=== PATIENT | female | born 1940 | race Caucasian/White ===

== ENCOUNTER 2021-04-16 08:56 | Day surgery (SDC) | payer MEDICARE ==
--- NOTE | 2021-04-16 08:21 | HP ---
DATE OF SURGERY: 04/16/2021 HISTORY OF PRESENT ILLNESS: The patient is a 80-year-old with last colonoscopy years ago. No bloody stools. She had some abdominal discomfort, some aches and pains after bowel movements and loose stools at times. Family history negative for colon cancer. I feels she is in need of follow up colonoscopy given change in bowel habits. PAST MEDICAL HISTORY: Arthritis. Hypothyroidism. Anxiety. Hypertension. Fibromyalgia. PAST SURGICAL HISTORY: Hernia surgery in the past. MEDICATIONS: Alprazolam, amlodipine, atorvastatin, carvedilol, cholecalciferol, levothyroxine, losartan, methotrexate, paroxetine, raloxifene, ropinirole, tramadol. ALLERGIES: NKDA. FAMILY HISTORY: Positive for lupus, pancreas cancer and breast cancer. SOCIAL HISTORY: No smoking or alcohol abuse. REVIEW OF SYSTEMS: Fourteen systems reviewed. Negative or noncontributory as above and per preadmission questionnaire. PHYSICAL EXAMINATION: GENERAL: No acute distress. HEENT: Sclerae nonicteric. NECK: No JVD. CHEST: Equal excursion, nonlabored breathing. CVS: Regular rate and rhythm. ABDOMEN: Soft. No peritoneal signs. EXTREMITIES: No significant edema. NEURO: Alert, oriented, moving extremities symmetrically. RECTAL: Deferred timed to endoscopy exam. PSYCH: Appropriate mood and affect. IMPRESSION: Change in bowel habits, some abdominal aches and pains after bowel movement. The patient is in need of follow up colonoscopy. She was shown the risk sheet and explained the procedure in detail including but not limited to bleeding or infection, risk of bowel injury or perforation possibly requiring open procedure, risk of missed or nondiagnosis or incomplete exam possibly requiring barium enema, other studies or procedures, general risk of anesthesia or sedation, risk of bowel prep but not limited to, consent obtained, will proceed with outpatient colonoscopy under MAC anesthesia.
[2021-04-16] MEDS ORDERED: Lactated Ringers 1,000 ML IV ONE (09:41)
[2021-04-16] MEDS ORDERED: Lactated Ringers 1,000 ML IV SCH (10:00)
[2021-04-16] MEDS ORDERED: DIPRIVAN 200 MG/20 ML IV ONE ×2 (11:08→11:19)
--- NOTE | 2021-04-17 08:20 | OP ---
SURGERY DATE/TIME: 04/16/2021 1110 PREOPERATIVE DIAGNOSES: 1) Change in bowel habits, need for colonoscopy. 2) ASA Class III. 3) Fair to limited bowel prep. 4) Diverticulosis left colon. 5) Small polyp transverse colon. 6) Withdrawal time about 9 minutes. POSTOPERATIVE DIAGNOSES: 1) Change in bowel habits, need for colonoscopy. 2) ASA Class III. 3) Fair to limited bowel prep. 4) Diverticulosis left colon. 5) Small polyp transverse colon. 6) Withdrawal time about 9 minutes. PROCEDURES: 1) Colonoscopy to cecum with random cold biopsies of colon to evaluate for microscopic colitis. 2) Hot biopsy polypectomy small polyp transverse colon. SURGEON: Dr. William Machado. ANESTHESIA: MAC. 1% lidocaine local. ESTIMATED BLOOD LOSS: Minimal. INDICATIONS: As noted above. Risks and benefits explained in detail but not limited to and consent obtained. DESCRIPTION OF PROCEDURE AND FINDINGS: The patient was taken to the endoscopy room. MAC anesthesia induced. After official time out and no disagreement with planned procedure, digital rectal exam did not reveal any rectal masses. She had minimal internal and external hemorrhoids. Video colonoscope inserted and passed up the tortuous sigmoid, descending, transverse and ascending colon requiring positioning on her back and two different staff members pushing on her abdomen, the scope was able to reach the cecum. Appendiceal orifice and ileocecal valve photo documented. Prep overall was fair but on the limited side. Some of the areas were really clean and other areas had large amount of liquidy semisolid stool this was suction irrigated as clear as possible slightly limiting the exam for very small lesions. The scope is slowly and carefully withdrawn over the next 9 minutes. There was a 3 mm polyp in the transverse colon removed with hot biopsy forceps hot biopsy polypectomy. Good hemostasis noted this was removed on the way in and on the way back the biopsy site looked fine at this point. The scope is slowly and carefully withdrawn and had some diverticulosis in the left colon. There were no signs of any other large polyps, masses or obstructing lesions. Again, some random cold biopsies had been taken in the colon to evaluate for microscopic colitis. Otherwise, the polyp was removed. There were no signs of any large polyps, masses or obstructing lesions. I discussed the findings with the family in the waiting area. I will see her back in the office next week.
[2021-04-23 16:11] VITALS: BP 134/64; PULSE 68; O2SAT 95
== END 2021-04-16 12:30 | disposition home or self-care (01) ==
LOC: SDC 08:56
PROVIDERS: ATTEND Surgery
DX: K57.30 Diverticulosis of large intestine without perforation or abscess without bleeding (principal); K63.5 Polyp of colon
CPT/HCPCS: 88305; 99100; J2704

== ENCOUNTER 2021-09-03 08:21 | Day surgery (SDC) | payer MEDICARE ==
[2021-09-03] MEDS ORDERED: Sensorcaine 0.25% 10 ML ONE (08:52)
[2021-09-03] MEDS ORDERED: MEFOXIN 2 GM PREMIX** 2 GM/50 ML ML IV ONE (09:18)
[2021-09-03] MEDS ORDERED: Lactated Ringers 1,000 ML IV ONE (09:19)
--- NOTE | 2021-09-03 09:24 | HP ---
DATE OF SURGERY: 09/03/2021 HISTORY OF PRESENT ILLNESS: The patient is a 80-year-old with right upper quadrant pain for a while. No nausea or vomiting. No specific food trigger. No change in bowel movements. He denied any liver problems in the past. PAST MEDICAL HISTORY: Psoriatic arthritis. Fibromyalgia in the past. Hypertension. Hyperlipidemia. Hypothyroidism. PAST SURGICAL HISTORY: Hernia repair surgery back in the . MEDICATIONS: Carvedilol, levothyroxine, losartan, folic acid, paroxetine, raloxifene, ropinirole, methotrexate, amlodipine, atorvastatin, vitamin D3. ALLERGIES: NKDA. FAMILY HISTORY: Lupus. Parkinson's disease. SOCIAL HISTORY: No smoking or alcohol abuse. REVIEW OF SYSTEMS: Fourteen systems reviewed pertinent for as noted above and admission assessment. No chest pain or palpitations. Other systems negative or noncontributory as above and per preadmission questionnaire. PHYSICAL EXAMINATION: GENERAL: No acute distress. HEENT: Sclerae nonicteric. NECK: No JVD. CHEST: Equal excursion, nonlabored breathing. CVS: Regular rate and rhythm. ABDOMEN: Soft. No peritoneal signs. EXTREMITIES: No significant edema. NEURO: Alert, oriented, moving extremities symmetrically. No gross motor deficits noted. RECTAL: Deferred timed to endoscopy exam. PSYCH: Appropriate mood and affect. IMPRESSION: She does have gallstones seen years ago and had been set up but did not follow through at that time. Now she is having some increased symptoms. She would like to proceed with cholecystectomy at this time. She was shown the gallbladder pamphlet and risk sheet, explained the procedure in detail but not limited to bleeding or infection, risk of trocar injury or hernia, risk of bowel, bladder or blood vessel injury, risk of bile leak, bile duct injury, retained stone or sludge possibly requiring further procedure either open or ERCP, general risk of anesthesia, deep venous thrombosis, pulmonary embolism, pneumonia, perioperative risk of aches, pains, bloating, constipation and/or loose stools possibly even chronic in nature. General risk of anesthesia, deep venous thrombosis, pulmonary embolism or pneumonia but not limited to. Possibility of no improvement in her symptoms, possible need for open procedure. She understands and agrees to the planned procedure, will proceed with laparoscopic cholecystectomy with possible open as an outpatient.
[2021-09-03] MEDS ORDERED: Lactated Ringers 1,000 ML IV SCH (09:30)
[2021-09-03] MEDS ORDERED: MEFOXIN 2 GM PREMIX** 2 GM/50 ML ML IV SCH (10:00)
[2021-09-03] MEDS ORDERED: SUBLIMAZE 100 MCG/2 ML ONE ×2 (11:39→11:45)
[2021-09-03] MEDS ORDERED: Zemuron 100 MG/10 ML ONE (11:45)
[2021-09-03] MEDS ORDERED: DIPRIVAN 200 MG/20 ML IV ONE (11:45)
[2021-09-03] MEDS ORDERED: Versed 2 MG/2 ML Injection ONE (11:45)
[2021-09-03] MEDS ORDERED: MORPHINE SULFATE 10 MG/ML ONE (12:04)
[2021-09-03] MEDS ORDERED: ROBINUL ONE ×2 (12:16→12:17)
[2021-09-03] MEDS ORDERED: BRIDION 200MG/2ML IV ONE (12:29)
[2021-09-03] MEDS ORDERED: NORCO 5/325 MG PO PRN (12:50)
[2021-09-03] MEDS ORDERED: NORCO 5/325 MG ONE (12:52)
[2021-09-03 14:13] VITALS: BP 105/69; PULSE 79; O2SAT 91
--- NOTE | 2021-09-04 09:07 | OP ---
SURGERY DATE/TIME: 09/03/2021 1037 PREOPERATIVE DIAGNOSIS: Acute exacerbation of chronic cholecystitis, symptomatic cholelithiasis. POSTOPERATIVE DIAGNOSIS: Acute exacerbation of chronic cholecystitis, symptomatic cholelithiasis. PROCEDURE: Laparoscopic cholecystectomy. SURGEON: Dr. William Machado. ANESTHESIA: General. ESTIMATED BLOOD LOSS: Minimal. INDICATIONS: As noted above. Risks and benefits explained in detail but not limited to and consent obtained. DESCRIPTION OF PROCEDURE AND FINDINGS: The patient was taken to the operating room. General anesthesia induced. Abdomen prepped and draped in usual sterile fashion. After official time out and no disagreement with planned procedure, a transverse incision made at the supraumbilical area. Fascia grasped and pulled upward. Veress needle inserted and tested with saline. Pneumoperitoneum accomplished insufflating opening pressure of 0-15. A 5 mm bladeless port and camera were inserted without difficulty followed by two - 5 mm right upper quadrant ports and 11 mm epigastric port. There was no evidence of any intra-abdominal injury secondary to trocar insertion. The gallbladder grasped retracted over the edge of the fatty infiltrated liver. Dissected carefully posterior lateral to anterior fashion. Slowly and carefully the cystic duct, infundibular area, main cystic artery isolated until critical view obtained both anteriorly and posteriorly. Once this is accomplished, the cystic duct and cystic artery clipped x3 and divided in the usual fashion. It should be noted this artery is pulsatile and it was anterior. Once this was accomplished, the gallbladder slowly and carefully dissected free from its dense attachment to liver bed clipping additional oozing side branches off the cystic artery and cystic vein as necessary directly on the gallbladder wall this took some time but the gallbladder slowly and carefully dissected free. It should be noted that one of the graspers tore a small pinhole spilling a small amount of bile. There is no evidence of any visible stone or sludge spillage. Continued dissecting the gallbladder free. Just prior to releasing from final attachments to the anterior edge of the liver, the liver bed re-inspected. Clips noted in place in cystic duct and cystic artery stumps. No signs of any active bleeding or bile leakage. It was felt there was no benefit from drain placement. The gallbladder released from final attachments to anterior edge of the liver, placed in the provided sac, pulled up and out the 10/11 epigastric port which was slightly enlarged and passed off for pathology. The port was replaced. Copious amount of irrigation accomplished lateral to the liver and subhepatic space until clear. Liver bed re-inspected. Clips noted in place cystic duct and cystic artery stumps. No signs of any active bleeding or bile leakage. It was felt there was no need for drain placement. The pneumoperitoneum decompressed. The fascial defect 1011 site closed with #1 Vicryl under direct vision of the camera. The wound is irrigated out. Skin incision closed with 4-0 Vicryl. Steri-Strips and sterile dressing applied. The patient tolerated the procedure well. There were no immediate complications.
== END 2021-09-03 14:15 | disposition home or self-care (01) ==
LOC: SDC 08:21
PROVIDERS: ATTEND Surgery
DX: K80.10 Calculus of gallbladder with chronic cholecystitis without obstruction (principal)
CPT/HCPCS: 99100; J0694; J2250; J2270; J2704; J3010; A9270-GY

== ENCOUNTER 2022-08-05 11:27 | Day surgery (SDC) | payer MEDICARE ==
--- NOTE | 2022-08-05 09:28 | HP ---
DATE OF SURGERY: 08/05/2022 HISTORY OF PRESENT ILLNESS: The patient is a 81-year-old with some right mid abdominal aches and right lower quadrant area. She had CT scan show appendicolith. PAST MEDICAL HISTORY: Arthritis, hyperlipidemia, hypothyroidism. She had colon polyps in the past. Arrhythmia in the past. She wears corrective lenses and dentures. PAST SURGICAL HISTORY: Cataract. Cholecystectomy. Hernia repair. Colonoscopy in the past. MEDICATIONS: Tramadol, losartan, raloxifene, ropinirole, alprazolam, paroxetine, furosemide, vitamin D3, atorvastatin, metoprolol, levothyroxine. ALLERGIES: NKDA. FAMILY HISTORY: Lupus. Parkinson's. SOCIAL HISTORY: No smoking or alcohol abuse. REVIEW OF SYSTEMS: Fourteen systems reviewed. No chest pain or palpitations. Other systems negative or noncontributory as above and per preadmission questionnaire. PHYSICAL EXAMINATION: BMI 32. Height 5 foot. GENERAL: No acute distress. HEENT: Sclerae nonicteric. NECK: No JVD. CHEST: Equal excursion, nonlabored breathing. CVS: Regular rhythm. ABDOMEN: Soft, some mild tenderness right mid to upper quadrant and right lower quadrant. No peritoneal signs. EXTREMITIES: No significant edema. NEURO: Alert, oriented, moving extremities symmetrically. RECTAL: Deferred timed to endoscopy exam. PSYCH: Appropriate mood and affect. SKIN: Dry. IMPRESSION: Right side abdominal pain, had cholecystectomy in the past, had CT scan show appendicolith. I feel he would benefit from laparoscopic appendectomy possible open. General risk of bleeding or infection, risk of trocar injury or hernia, risk of bowel, bladder or blood vessel injury, risk of need for open procedure, remote risk of abscess or fistula possibly requiring other procedures down the road, general risk of anesthesia, deep venous thrombosis, pulmonary embolism, pneumonia, possibility this procedure may not improve her symptoms. She understands and agrees to the planned procedure. Will have GI evaluation scheduled in the month of July as well. Will proceed with laparoscopic appendectomy possible open as an outpatient.
[~2022-08-05 11:27] MED LIST: Sensorcaine 0.25% 10 ML ONE
[2022-08-05] MEDS ORDERED: Lactated Ringers 1,000 ML IV SCH (11:30)
[2022-08-05] MEDS ORDERED: MEFOXIN 2 GM PREMIX** 2 GM/50 ML ML IV ONE (11:35)
[2022-08-05] MEDS ORDERED: Lactated Ringers 1,000 ML IV ONE ×2 (11:35→12:25)
[2022-08-05] MEDS ORDERED: MEFOXIN 2 GM PREMIX** 2 GM/50 ML ML IV SCH (12:00)
[2022-08-05] MEDS ORDERED: TORAdol 30 mg Injection ONE (12:20)
[2022-08-05] MEDS ORDERED: DIPRIVAN 200 MG/20 ML IV ONE (12:20)
[2022-08-05] MEDS ORDERED: Zofran 4 MG/2 ML VIAL ONE (12:20)
[2022-08-05] MEDS ORDERED: BRIDION 200MG/2ML IV ONE (12:20)
[2022-08-05] MEDS ORDERED: Xylocaine-Mpf 2% 5 Ml Vial ONE (12:20)
[2022-08-05] MEDS ORDERED: Decadron 4 MG INJ ONE (12:20)
[2022-08-05] MEDS ORDERED: Zemuron 100 MG/10 ML ONE (12:20)
[2022-08-05] MEDS ORDERED: SUBLIMAZE 100 MCG/2 ML ONE ×2 (12:20→13:57)
[2022-08-05] MEDS ORDERED: OFIRMEV 100 ML IV ONE (12:25)
[2022-08-05] MEDS ORDERED: Magnesium Sulfate 1 GM/2 ML VIAL ONE (12:25)
[2022-08-05] MEDS ORDERED: Ketamine HCl 50 MG/ML ONE (12:42)
[2022-08-05] MEDS ORDERED: ROBINUL ONE (13:04)
[2022-08-05] MEDS ORDERED: Ephedrine Sulfate 50 MG/ML ONE (13:13)
[2022-08-05] MEDS ORDERED: ULTRAM 50 MG PO PRN (14:44)
[2022-08-05 15:25] VITALS: O2SAT 92
[2022-08-05 15:32] VITALS: BP 185/92; PULSE 67
--- NOTE | 2022-08-06 08:05 | OP ---
SURGERY DATE/TIME: 08/05/2022 1240 PREOPERATIVE DIAGNOSIS: Right side abdominal pain, history of CT scan showing appendicolith and dilated appendix at the base. POSTOPERATIVE DIAGNOSIS: Right side abdominal pain, history of CT scan showing appendicolith and dilated appendix at the base along with adhesions right colon to the anterior abdominal wall as well as little, tiny adhesions left lower abdomen to the anterior abdominal wall. PROCEDURES: 1) Diagnostic laparoscopy. 2) Laparoscopic appendectomy. 3) Laparoscopic lysis of adhesions. SURGEON: Dr. Isiah Machado. GUT SNATCHER: Deshawn Chase M..D., [facility] Resident. ANESTHESIA: General. ESTIMATED BLOOD LOSS: Minimal. INDICATIONS: As noted above. Risks and benefits explained in detail but not limited to, consent obtained. DESCRIPTION OF PROCEDURE AND FINDINGS: The patient is taken to the operating room. General anesthesia was induced. Abdomen prepped and draped in usual sterile fashion. After official time out and no disagreement with planned procedure, a transverse incision made at supraumbilical area. Fascia grasped and pulled upwards. Veress needle inserted and tested with saline. Pneumoperitoneum accomplished insufflating from opening pressure of 0 to 15. A 5 mm bladeless port and camera were inserted without difficulty followed by a 12 mm port right upper quadrant port and a 5 mm lower midline port. Careful inspection she had a little bit of adhesions on the omentum and right colon up to the anterior abdominal wall as well as one little adhesion over the left lower abdomen. These adhesions are taken down with LigaSure device. The small bowel was run approximately two feet. There is no evidence of any Meckel's diverticulum. The appendix is thickened at its base consistent with appendicolith otherwise no gross signs of infection. The LigaSure had already been opened. It had been used to take adhesions down. Mesoappendix taken down with LigaSure. EndoGIA stapler fired across the base of the appendix at the cecum. Sequential reload fired across the residual small piece of mesoappendix. Good hemostasis noted. The appendix is placed in a sack and pulled free and passed off. The 12 port is placed with puncture closure device with #1 Vicryl. The port is replaced. Copious amount of irrigation accomplished in the right lower quadrant, right gutter and pelvis irrigating clear. All of these were unremarkable. There was only a small, little benign tubal cyst. Otherwise the staple line was intact on mesoappendix and the cecum. No signs of any active bleeding at this time. It was felt there was no benefit in drain placement. Pneumoperitoneum decompressed. The wound is irrigated out. Skin incision closed with 4-0 Vicryl. Steri-Strips and sterile dressing applied. 0.25% Marcaine local injected along the skin incision fascial defects. The patient tolerated the procedure well. There were no immediate complications. Findings discussed with the family out in the waiting area.
== END 2022-08-05 15:30 | disposition home or self-care (01) ==
LOC: SDC 11:27
PROVIDERS: ATTEND Surgery
DX: K38.0 Hyperplasia of appendix (principal); R10.31 Right lower quadrant pain; K66.0 Peritoneal adhesions (postprocedural) (postinfection)
CPT/HCPCS: 88304; 99100; J0694; J1100; J1885; J2405; J2704; J3010; J3475; A9270-GY